=== PATIENT | male | born 1955 | race Caucasian/White ===

== ENCOUNTER → 2016-11-07 | Day surgery (SDC) | payer OTHER ==
[~2016-11-07] VITALS: Ht 182.9 cm; Wt 94.6 kg
[~2016-11-07] MED LIST: *RESP: ALBUTEROL 2.5 MG/3 ML NEB (PRN) PERIprocedural Use ONLY NEB ONE; ACETAMINOPHEN 1000 MG/100 ML VIAL IV SCH; ASPI1TAB69 PO; BUPIVACAINE/EPINEPHRINE 0.25% PF 30 ML VIAL ONE; DEXAMETHASONE SOD PHOS 4 MG/ML VIAL ONE; DO NOT ADM ANY ANTICOAGULANT DRUGS XX PRN; GLUC1CAP14 PO; INSULIN HUMAN REGULAR 1,000 UNITS/10 ML VIAL SQ PRN; LACTATED RINGER'S 1000 ML IV SCH; METOPROLOL TARTRATE 25 MG TAB PO PRN; MIDAZOLAM HCL 2 MG/2 ML VIAL ONE; MORPHINE SULFATE 4 MG/ML INJ IV PRN; MULTTAB67 PO; NEOSTIGMINE 3 MG/3 ML SYR IV ONE; ONDANSETRON HCL 4 MG/2 ML VIAL IV PRN; ONDANSETRON HCL 4 MG/2 ML VIAL IV PUSH ONE; ONDANSETRON HCL 4 MG/2 ML VIAL IV PUSH SCH; PHENYLEPH/NS 1000 MCG/10 ML SYR IV ONE; PROPOFOL 200 MG/20 ML AMP IV ONE; SODIUM CHLORID 0.9% 500 ML IV SCH; SODIUM CHLORIDE 5 ML FLUSH BID IVF SCH; SODIUM CHLORIDE 5 ML FLUSH PRN IVF; ceFAZolin 2 GM PREMIX 50 ML IV SCH; ePHEDrine/NS 25 MG/5 ML SYR IV ONE; fentaNYL CITRATE 250 MCG/5 ML AMP ONE; metroNIDAZOLE 500 MG INJ 100 ML IV SCH; oxyCODONE/ACETAMINOPHEN 5 MG/325 MG TAB PO PRN
[2016-11-07 08:00] VITALS: BP 141/98; PULSE 76; RESP 18; TEMP 98.6; O2SAT 96
[2016-11-07 13:00] VITALS: BP 146/86; PULSE 93; RESP 20; TEMP 97.7; O2SAT 96
--- NOTE | 2016-11-19 11:03 | MP ---
cc: DAVID NICK Corrected Copy: 12/12/16 DATE OF SURGERY: 11/07/2016 PREOPERATIVE DIAGNOSIS Right inguinal hernia. POSTOPERATIVE DIAGNOSIS Large indirect right inguinal hernia. PROCEDURE Laparoscopic repair of right inguinal hernia with 12 x 15 UltraPro mesh. SURGEON David Nick MD ANESTHESIA General endotracheal anesthesia. ESTIMATED BLOOD LOSS Scant. FINDINGS Large indirect hernia. SPECIMENS None. COMPLICATIONS None. OPERATION The patient was brought to the operating room and placed on operating table in supine position, bilateral sequential inflation device placed on lower extremities. General anesthesia was instituted. A Richards catheter was placed. Antibiotic was initiated. The abdomen was prepped and draped sterilely. The infraumbilical region was anesthetized with 0.25% Marcaine with epinephrine. A skin incision was made, extended to the right of the umbilicus. It was taken through the subcutaneous tissue. Anterior rectus sheath was encountered. It was incised. The rectus muscle was retracted laterally. The preperitoneal space was then dissected, first with finger dissection, followed by blunt balloon dissection. The self-retaining balloon trocar was then placed. CO2 was insufflated into the preperitoneal space to a pressure of 12 mmHg. Two 5-mm ports were then placed in the midline, attention first focused on the right. The pubic tubercle was dissected, dissecting Homer's ligament. The direct space was dissected. There was preperitoneal fat within it. This was reduced. The space was dissected laterally to the psoas muscle. The hernia sac was dissected off of the spermatic cord and brought into the preperitoneal space. A piece of UltraPro mesh was then opened on the back table. It was cut to 12 x 15 cm. It was introduced into the preperitoneal space and deployed on the patient's right side to cover the entire myopectineal orifice including the direct, the femoral and indirect space. It was secured to Homer's ligament with a SecureStrap as well as to the rectus muscle anteriorly. Attention was focused on making sure the peritoneum was below mesh. CO2 was then released. Marcaine was insufflated into the preperitoneal space for postop analgesia. All ports were removed. The anterior rectus sheath was approximated with 0 Vicryl suture. All skin edges were approximated with 4-0 Monocryl. The abdominal wall was cleaned and sterile dressing placed. The patient was awakened and taken to recovery room. MD ZECHARIAH Mcgee/TETO /8:19 AM /10:19 AM BRYAN
== END | disposition home or self-care (01) ==
LOC: HSDC 07:03
PROVIDERS: ATTEND Surgery
DX: K40.90 Unilateral inguinal hernia, without obstruction or gangrene, not specified as recurrent (principal)
CPT/HCPCS: 00840; 49650; C1727; C1781; J0131; J0690; J1100; J2250; J2370; J2405; J2710; J3010; J7613